=== PATIENT | female | born 1955 | race Caucasian/White ===

== ENCOUNTER 2019-04-28 11:02 | Emergency (ER) | payer OTHER ==
[~2019-04-28] VITALS: Ht 160 cm; Wt 53.0 kg
[2019-04-28] MEDS ORDERED: GLIP10 PO (11:21)
[2019-04-28] MEDS ORDERED: LOSA50TA64 PO (11:21)
[2019-04-28] MEDS ORDERED: METF-445 PO (11:21)
[2019-04-28 11:24] LABS: GLUCOSE,POINT OF CARE 130 MG/DL (70-110)
[2019-04-28 11:42] VITALS: BP 154/87
[2019-04-28] MEDS ORDERED: IBUPROFEN 600 MG TABLET PO ONE (12:15)
== END 2019-04-28 14:20 | disposition home or self-care (01) ==
LOC: EMS 11:05
DX: S92.354A Nondisplaced fracture of fifth metatarsal bone, right foot, initial encounter for closed fracture (principal); I10 Essential (primary) hypertension; E11.9 Type 2 diabetes mellitus without complications; Z79.84 Long term (current) use of oral hypoglycemic drugs; X50.1XXA Overexertion from prolonged static or awkward postures, initial encounter; Y93.89 Activity, other specified; Y92.89 Other specified places as the place of occurrence of the external cause; Y99.8 Other external cause status